=== PATIENT | female | born 1980 | race Caucasian/White ===

== ENCOUNTER 2018-06-23 17:45 | Inpatient (IN) | END 2018-06-27 12:45 | disposition home or self-care (01) | DRG 833 ==

== ENCOUNTER 2018-07-03 | Inpatient (IN) | END 2018-07-03 16:45 | disposition home or self-care (01) | DRG 833 ==

== ENCOUNTER 2018-08-12 16:30 | Inpatient (IN) | END 2018-08-15 14:58 | disposition home or self-care (01) | DRG 788 ==